=== PATIENT | female | born 1985 | race Caucasian/White ===

== ENCOUNTER 2019-01-29 00:59 | Emergency (ER) | payer BC, OTHER ==
[~2019-01-29] VITALS: Ht 153.2 cm; Wt 81.6 kg
[~2019-01-29 00:59] MED LIST: NORCO 7.5-3251 EACH PO
[2019-01-29] MEDS ORDERED: KETOROLAC TROMETHAMINE 60 MG/2 ML VIAL IM ONE (01:30)
[2019-01-29] MEDS ORDERED: ORPHENADRINE CITRATE 30 MG/ML VIAL IM ONE (01:30)
[2019-01-29] MEDS ORDERED: KETOROLAC TROMETHAMINE 60 MG/2 ML VIAL ONE (01:35)
[2019-01-29 02:01] LABS: BILIRUBIN,URINE NEGATIVE (NEGATIVE); KETONES,URINE NEGATIVE (NEGATIVE); LEUKOCYTE ESTERASE ,URINE NEGATIVE (NEGATIVE); NITRITE,URINE NEGATIVE (NEGATIVE); PROTEIN,URINE DIPSTICK NEGATIVE (NEGATIVE); URINE UROBILINOGEN 0.2 mg/dL (0.2 - 1)
[2019-01-29 02:02] LABS: CLARITY,URINE CLEAR (CLEAR); COLOR,URINE YELLOW (YELLOW)
[2019-01-29 02:03] LABS: ANION GAP 13.8 mmol/L (8-16); BLOOD UREA NITROGEN 8 mg/dL (7-26); BUN/CREATININE RATIO 10 (6-25); CALCIUM 9.6 mg/dL (8.4-10.2); CARBON DIOXIDE 24 mmol/L (22-29); CHLORIDE 103 mmol/L (98-107); CREATININE, SERUM 0.84 mg/dL (0.57-1.11); EST GLOMERULAR FILTRATION RATE > 60 ML/MIN (60-); GLUCOSE 108 mg/dL (74-118); POTASSIUM 3.8 mmol/L (3.5-5.1); SODIUM 137 mmol/L (136-145)
--- NOTE | 2019-01-29 02:21 | Diagnostic Imaging Report ---
Lumbar spine two views CPT code: 45297 Indication: Low back pain and leg numbness Technique: A.P. and lateral views of the lumbar spine obtained without comparison. Findings: There are five non rib bearing vertebral bodies. Alignment is maintained on the AP and lateral views. The transverse processes are intact. The vertebral body heights are well maintained. There is mild disc space narrowing and endplate ossific lipping at L5-S1. No abnormalities of the sacroiliac joints. The sacrum is normal. The spinous processes are normally aligned. There is a Schmorl's node at T11-12. There is no evidence of subluxation. The bowel gas pattern is unremarkable. IMPRESSION: Mild degenerative changes of the lower lumbar spine at L5-S1. Signed by: Dr. Simone Urbina MD on 01/29/2019 2:18 AM
[2019-01-29 02:28] LABS: BACTERIA,URINE FEW /HPF; EPITHELIAL CELLS,URINE FEW /LPF; RBC,URINE 0-5 /HPF (0-5); WBC,URINE (MAN) 0-5 /HPF (0-5)
[2019-01-29] MEDS ORDERED: ACETAMINOPHEN 1000 MG/100 ML IV STA (02:42)
[2019-01-29] MEDS ORDERED: SODIUM CHLORIDE 0.9% 1000ML 1,000 ML IV ONE (02:45)
== END 2019-01-29 02:54 | disposition home or self-care (01) ==
LOC: ER 00:59
DX: M54.42 Lumbago with sciatica, left side (principal); M54.41 Lumbago with sciatica, right side; S39.012A Strain of muscle, fascia and tendon of lower back, initial encounter; X50.1XXA Overexertion from prolonged static or awkward postures, initial encounter; Y92.008 Other place in unspecified non-institutional (private) residence as the place of occurrence of the external cause
CPT/HCPCS: 36415; 72100; 80048; 81001; 99283; J1885; J2360